=== PATIENT | female | born 1955 | race African-American/Black ===

== ENCOUNTER 2020-05-03 02:01 | Emergency (ER) | payer SELFPAY ==
[~2020-05-03] VITALS: Ht 170.2 cm; Wt 113.0 kg
[2020-05-03] MEDS ORDERED: ATENOLOL25 MG PO ×2 (02:27→02:29)
[2020-05-03] MEDS ORDERED: HYDRALAZINE50 MG PO (02:28)
[2020-05-03 02:56] LABS: URINE BILIRUBIN - DIPSTICK NEGATIVE (NEGATIVE); URINE BLOOD DIPSTICK TRACE-LYSED (NEGATIVE); URINE COLOR YELLOW; URINE GLUCOSE - DIPSTICK NEGATIVE (NEGATIVE); URINE KETONE NEGATIVE (NEGATIVE); URINE LEUK ESTERASE NEGATIVE (NEGATIVE); URINE NITRITE - DIPSTICK NEGATIVE (Negative); URINE PROTEIN - DIPSTICK NEGATIVE (NEG-TRACE); URINE UROBILINOGEN - DIPSTICK 0.2 E.U./dL (0.2)
[2020-05-03 03:04] LABS: HEMATOCRIT 39.5 % (37.0-47.0); HEMOGLOBIN 11.8 g/dl (12.0-16.0); IMMATURE GRANULOCYTES 0.2 % (0.0-5.0); MEAN CORPUSCULAR HGB 28.1 pG CALC (26.0-32.0); MEAN CORPUSCULAR HGB CONC 29.9 g/dL CAL (32.0-36.0); NEUT# 3.52 thou/uL (2.00-7.15); RED BLOOD COUNT 4.2 mill/uL (4.20-5.60); RED CELL DISTRI WIDTH 14.3 % (11.5-15.5)
[2020-05-03 03:14] LABS: ALBUMIN 4.3 g/dL (3.2-5.0); ALKALINE PHOSPHATASE 109 u/l (38-126); ANION GAP 12 (6-22 (CALC)); BILIRUBIN, TOTAL 0.4 mg/dL (0.0-1.4); BUN 17 mg/dL (8-23); BUN/CREATININE RATIO 18 (12-20 (CALC)); CARBON DIOXIDE 31 mmol/l (22-30); CHLORIDE 102 mmol/l (95-108); GFR 56 ML/MIN (>=60 (CALC)); GFR FOR AFR.AMER. > 60 ML/MIN (>=60 (CALC)); POTASSIUM 3.9 mmol/l (3.5-5.1); SGOT/AST 26 u/l (9-36); SODIUM 141 mmol/l (137-146); TOTAL PROTEIN 8.2 g/dL (6.3-8.2)
[2020-05-03 04:44] VITALS: BP 173/100
== END 2020-05-03 04:46 | disposition home or self-care (01) | DRG 305 ==
LOC: ED 02:01
PROVIDERS: Family Medicine
DX: I10 Essential (primary) hypertension (principal)

== ENCOUNTER 2021-08-05 17:51 | Emergency (ER) | payer OTHER ==
[~2021-08-05] VITALS: Ht 160 cm; Wt 102.0 kg
[~2021-08-05 17:51] MED LIST: ATENOLOL25 MG PO; HYDRALAZINE50 MG PO
[2021-08-05 20:08] VITALS: BP 125/74
[2021-08-05] MEDS ORDERED: VOLTAREN75 MG PO (20:49)
== END 2021-08-05 21:11 | disposition home or self-care (01) | DRG 556 ==
LOC: ED 17:51
DX: M25.562 Pain in left knee (principal); I10 Essential (primary) hypertension; Z86.718 Personal history of other venous thrombosis and embolism

== ENCOUNTER 2023-10-05 11:16 | Emergency (ER) | payer MEDICARE ==
[~2023-10-05] VITALS: Ht 160 cm; Wt 111.0 kg
[2023-10-05] VITALS (7 sets, daily range): BP systolic 134–165; BP diastolic 75–93
[~2023-10-05 11:16] MED LIST changes: +VOLTAREN75 MG PO
[2023-10-05] MEDS ORDERED: TRAMADOL HYDROC50 M1 PO (11:43)
== END 2023-10-05 13:44 | disposition home or self-care (01) ==
LOC: ED 11:16
DX: M79.642 Pain in left hand (principal); E66.9 Obesity, unspecified; I10 Essential (primary) hypertension

== ENCOUNTER 2024-01-20 16:59 | Emergency (ER) | payer MEDICARE ==
[~2024-01-20] VITALS: Ht 160 cm; Wt 109.1 kg
[2024-01-20] VITALS (9 sets, daily range): BP systolic 167–195; BP diastolic 91–109
[~2024-01-20 16:59] MED LIST changes: +TRAMADOL HYDROC50 M1 PO
[2024-01-20] MEDS ORDERED: LOSARTAN Potassium 50 MG/TAB PO ONE (17:10)
[2024-01-20] MEDS ORDERED: cloNIDine HCL 0.1 MG/TAB PO ONE ×2 (17:15→17:55)
[2024-01-20 17:22] LABS: BASO% 0.2 % (0-3); HEMATOCRIT 39.6 % (37.0-47.0); HEMOGLOBIN 11.8 g/dl (12.0-16.0); IMMATURE GRANULOCYTES 0.2 % (0.0-5.0); LYMPH% 28.5 % (15-41); MEAN CELL VOLUME 95.7 fL CALC (80.0-100.0); MEAN CORPUSCULAR HGB 28.5 pG CALC (26.0-32.0); MEAN CORPUSCULAR HGB CONC 29.8 g/dL CAL (32.0-36.0); MONO% 7.2 % (2-13); NEUT# 3.87 thou/uL (2.00-7.15); NEUT% 62.9 % (42-76); RED BLOOD COUNT 4.14 mill/uL (4.20-5.60); RED CELL DISTRI WIDTH 13.6 % (11.5-15.5)
[2024-01-20 17:35] LABS: ALBUMIN 4.6 g/dL (3.2-5.0); ALKALINE PHOSPHATASE 92 u/l (38-126); ANION GAP 9 (6-22 (CALC)); BUN 15 mg/dL (8-23); BUN/CREATININE RATIO 16 (12-20 (CALC)); CARBON DIOXIDE 28 mmol/l (22-30); CHLORIDE 108 mmol/l (95-108); CREATININE 0.9 mg/dL (0.5-1.0); ESTIMATED GFR 70 ML/MIN (>=90 (CALC)); POTASSIUM 3.4 mmol/l (3.5-5.1); SGOT/AST 32 u/l (9-36); SODIUM 141 mmol/l (137-146); TOTAL PROTEIN 8.1 g/dL (6.3-8.2)
[2024-01-20 17:37] LABS: BILIRUBIN, TOTAL 0.7 mg/dL (0.02-1.3)
[2024-01-20] MEDS ORDERED: COZAAR50 MG PO (17:48)
[2024-01-20] MEDS ORDERED: ATORVASTATIN CA40 MG PO (17:49)
[2024-01-20] MEDS ORDERED: CLONIDINE0.1 MG PO (18:45)
== END 2024-01-20 19:00 | disposition home or self-care (01) ==
LOC: ED 16:59
PROVIDERS: Family Medicine
DX: I10 Essential (primary) hypertension (principal); R51.9 Headache, unspecified

== ENCOUNTER 2024-05-09 09:41 | Emergency (ER) | payer MEDICARE ==
[~2024-05-09] VITALS: Ht 160 cm; Wt 107.0 kg
[~2024-05-09 09:41] MED LIST changes: +ATORVASTATIN CA40 MG PO; +CLONIDINE0.1 MG PO; +COZAAR50 MG PO
[2024-05-09 10:01] VITALS: BP 168/102
[2024-05-09 10:16] VITALS: BP 167/100
[2024-05-09 10:31] VITALS: BP 157/92
[2024-05-09 10:37] LABS: BASO% 0.5 % (0-3); EOS% 0.5 % (0-8); HEMATOCRIT 38.3 % (37.0-47.0); HEMOGLOBIN 11.6 g/dl (12.0-16.0); LYMPH% 28.9 % (15-41); MEAN CELL VOLUME 96.5 fL CALC (80.0-100.0); MEAN CORPUSCULAR HGB 29.2 pG CALC (26.0-32.0); MEAN CORPUSCULAR HGB CONC 30.3 g/dL CAL (32.0-36.0); MONO% 8.7 % (2-13); NEUT# 2.62 thou/uL (2.00-7.15); NEUT% 61.4 % (42-76); RED BLOOD COUNT 3.97 mill/uL (4.20-5.60); RED CELL DISTRI WIDTH 13.6 % (11.5-15.5)
[2024-05-09 10:58] LABS: ALBUMIN 4.1 g/dL (3.2-5.0); BILIRUBIN, TOTAL 0.6 mg/dL (0.02-1.3); CREATININE 0.9 mg/dL (0.5-1.0); POTASSIUM 3.7 mmol/l (3.5-5.1); TOTAL PROTEIN 7.6 g/dL (6.3-8.2)
[2024-05-09 11:01] VITALS: BP 177/90
[2024-05-09] MEDS ORDERED: MAGNESIUM OXIDE 400 MG/TAB PO ONE (11:35)
[2024-05-09 12:24] VITALS: BP 148/72
== END 2024-05-09 12:27 | disposition home or self-care (01) ==
LOC: ED 09:41
PROVIDERS: Family Medicine
DX: R20.0 Anesthesia of skin (principal); E83.42 Hypomagnesemia; I10 Essential (primary) hypertension; E78.5 Hyperlipidemia, unspecified; K21.9 Gastro-esophageal reflux disease without esophagitis